=== PATIENT | female | born 1985 | race Caucasian/White ===

== ENCOUNTER → 2021-03-10 | Outpatient (CLI) | payer BC ==
--- NOTE | 2021-03-10 19:14 | CONS ---
CONSULTATION DATE OF SERVICE: 03/10/2021 35-year-old lady has [facility] for possible obstructive sleep apnea-hypopnea syndrome. HISTORY OF PRESENT ILLNESS/SLEEP WAKE EVALUATION: Patient's usual sleep schedule from 9 or 10 p.m. until 7:30 a.m. on weekend and until 8, 8:30 a.m. on weekends. No problems with falling asleep, although she has TV set in bedroom. She wakes up from sleep 2 times with nocturia. In the morning patient wakes up tired, has difficulties to pay attention, has problems with memory, concentration, irritability and anxiety. [place] Sleepiness Scale is 0, but this is with 15 mg of Adderall daily. PAST MEDICAL HISTORY: Positive for anxiety, panic attacks, ADHD. PAST SURGICAL HISTORY: Cholecystectomy. MEDICATIONS: control, propranolol 10 mg up to 3 times a day, Adderall 15 mg once a day. SOCIAL HISTORY: Negative for smoking or using alcohol. FAMILY HISTORY: Hypertension, hyperlipidemia, fibromyalgia, thyroid problems. PHYSICAL EXAMINATION: lady without distress. BP 118/63, HR around 100, RR 15, Height 5' 1-1/2", weight 191, body mass index in the range of 37. Neck 14-1/2" in circumference. Temperature 97.0, oxygen saturation at room air 97%. Oropharynx, low position of soft palate, Mallampati 3-4. HEENT: PERRLA, EOMI, evaluation of oropharynx showed tongue protrudes midline. NECK: Supple, no JVD. Thyroid is not palpable. LUNGS: Clear to percussion and to auscultation. Good air exchange. No wheezing or rhonchi. HEART: S1, S2 regular. No murmurs, gallops, or rubs. ABDOMEN: Slightly obese. Soft and nontender. Bowel sounds are present. No organomegaly appreciated. EXTREMITIES: No clubbing or cyanosis. [employer] OFFICER: Awake, alert, and oriented X3. Cranial nerves 2 to 7 intact. There is no fasciculation or atrophy. noted. No focal deficits observed. IMPRESSION: 1. Snoring, awakenings from sleep with nocturia, low position of soft palate, Mallampati 3-4, feeling tiredness and sleepiness during the day. [place] Sleepiness Scale is low, but the patient is on treatment with Adderall. Possible obstructive sleep apnea-hypopnea syndrome. 2. Obesity, body mass index about 37. 3. History of attention deficit hyperactivity disorder. Patient on treatment with Adderall. 4. History of anxiety and panic attacks. 5. Status post cholecystectomy. PLAN: 1. Home sleep apnea test to recheck the patient breathing during sleep. Previous home sleep apnea test was done by another institution and was negative several months ago. 2. Following plan after reviewing results of the home sleep apnea test, if the test will be negative for obstructive sleep apnea-hypopnea syndrome, we will consider to proceed with polysomnogram and following multiple sleep latency test without taking any Adderall to check, objectively, patient's symptoms of excessive daytime sleepiness. 3. Sleep hygiene with regular time in bed for 7 1/2 to 8 hours. 4. Precautions with driving, no driving, no sleepiness. 5. Losing weight program. 6. Preferable position during sleep on the side. Thank you very much for referring this patient for consultation. Sincerely, Joaquín Lima MD, PhD, FAASM Diplomat of [place] [employer] Sleep Medicine Board of [place] [employer] [facility] [place] MMODL / JIMENEZN: [id number] /
== END ==
LOC: SLEEP 15:15
PROVIDERS: ATTEND Internal Medicine
DX: R35.1 Nocturia (principal); R06.83 Snoring; E66.9 Obesity, unspecified; F90.9 Attention-deficit hyperactivity disorder, unspecified type; F41.0 Panic disorder [episodic paroxysmal anxiety]; Z90.49 Acquired absence of other specified parts of digestive tract; Z68.37 Body mass index [BMI] 37.0-37.9, adult; Z79.899 Other long term (current) drug therapy
CPT/HCPCS: 99211

== ENCOUNTER → 2021-04-21 | Outpatient (CLI) | payer BC ==
--- NOTE | 2021-04-25 09:28 | MM ---
Reason for exam: screening (asymptomatic). Last mammogram was performed 7 years and 10 months ago. History: Taking hormonal contraceptives for 7 months. Physical Findings: A clinical breast exam by your physician is recommended on an annual basis and results should be correlated with mammographic findings. MG Screening Mammo w CAD Bilateral CC and MLO view(s) were taken. Prior study comparison: June 11, 2013, CAD bilateral diagnostic mammogram. There are scattered fibroglandular densities. Breast density has considerably decreased from the prior 2013 exam. One focal asymmetry and two focal asymmetries remain in the upper outer quadrant of the right and left breasts, respectively. 6 month follow up recommended. ASSESSMENT: Probably benign, BI-RAD 3 RECOMMENDATION: Follow-up diagnostic mammogram of both breasts in 6 months.
== END | disposition home or self-care (01) ==
LOC: RADMAMWWP 10:00
PROVIDERS: ATTEND Obstetrics & Gynecology Obstetrics
DX: Z12.31 Encounter for screening mammogram for malignant neoplasm of breast (principal); Z79.3 Long term (current) use of hormonal contraceptives
CPT/HCPCS: 77067

== ENCOUNTER → 2021-12-02 | Outpatient (CLI) | payer BC ==
--- NOTE | 2021-12-02 14:42 | MM ---
Reason for exam: follow-up at short interval from prior study. Last mammogram was performed 7 months ago. History: Taking hormonal contraceptives beginning at age 15. Physical Findings: A clinical breast exam by your physician is recommended on an annual basis and results should be correlated with mammographic findings. MG 3D Diag Mammo W/Cad JOE Bilateral CC and MLO view(s) were taken. Prior study comparison: April 21, 2021, bilateral MG screening mammo w CAD. There are scattered fibroglandular densities. Finding: There is an increased size 15 mm high density, round mass located 12 cm from the nipple in the 10 o'clock upper outer quadrant of the right breast. Left breast nodular density is stable. New finding since April 21, 2021. Results were given to the patient verbally at the time of the exam. ASSESSMENT: Incomplete: need additional imaging evaluation, BI-RAD 0 RECOMMENDATION: Ultrasound of the right breast.
--- NOTE | 2021-12-02 14:46 | USB ---
Reason for exam: additional evaluation requested from abnormal screening. History: Taking hormonal contraceptives beginning at age 15. Physical Findings: A clinical breast exam by your physician is recommended on an annual basis and results should be correlated with mammographic findings. US Breast Limited BILAT Right limited breast ultrasound including focal area of concern, retroareolar and axilla demonstrates a 1.3 x 0.9 x 1.5cm hypoechoic, vascular lesion at 10 o'clock, 12cm from nipple. Left limited breast ultrasound including focal area of concern, retroareolar and axilla demonstrates a 0.7 x 0.3 x 0.6cm complex, cystic lesion at 2 o'clock, 12cm from nipple and a 0.7 x 0.3 x 0.7cm cystic lesion at 3 o'clock, 12cm from nipple, completely simple, probably benign, short term follow up recommended. Results were given to the patient verbally at the time of the exam. ASSESSMENT: Suspicious, BI-RAD 4 RECOMMENDATION: Ultrasound core biopsy of the right breast. Called office with mammographic findings and has scheduled an appointment for the patient for 12/23/21 at 9:[address] Foreman. Biopsy scheduled for 12/15/21 at 12:30. PRELIMINARY REPORT CALLED AND FAXED TO DR. FOREMAN ON 12/02/21. Follow-up diagnostic mammogram of the left breast in 6 months.
== END | disposition home or self-care (01) ==
LOC: RADMAMWWP 07:44
PROVIDERS: ATTEND Family Medicine
DX: R92.8 Other abnormal and inconclusive findings on diagnostic imaging of breast (principal); N64.89 Other specified disorders of breast
CPT/HCPCS: 77062; 77066

== ENCOUNTER → 2021-12-15 | Day surgery (SDC) | payer BC ==
--- NOTE | 2021-12-15 13:50 | USB ---
EXAMINATION TYPE: US biopsy breast VAD RT, MG diagnostic mammo RT wo CAD DATE OF EXAM: 12/15/2021 CLINICAL HISTORY: R92.8 ABN MAMMO. Abnormal ultrasound TECHNIQUE: Ultrasound guided core biopsy of right breast with clip placement and follow-up diagnostic right breast mammogram. COMPARISON: Prior bilateral breast ultrasound and mammogram December 02, 2021 FINDINGS: The procedure of ultrasound guided core biopsy was explained to the patient. Benefits, alternatives, and risks were discussed. An informed consent was then obtained. The patient was placed in supine positioning for imaging and for the procedure. Preprocedure ultrasound redemonstrates an oval circumscribed heterogeneous hypoechoic solid mass at 10:00 position in the deeper tissue measuring near 1.5 cm on long axis. The overlying skin was prepped and draped in usual sterile fashion. Lidocaine is used as anesthetic into the skin and subcutaneous tissue. Lidocaine with epinephrine is used as anesthetic into the deeper tissue up to area of concern in the right breast. Under ultrasound guidance, a vacuum assisted biopsy gun device was used to obtain 2 core samples. Following this, a biopsy clip was left in lesion. The patient tolerated the procedure well without any immediate complication. The patient was kept in the radiology department for short stay after the procedure and then discharged home in stable condition. Post procedure mammogram shows the clip satisfactory in position relative to the area of concern with some surrounding density or hematoma after procedure noted. IMPRESSION: Successful, uncomplicated ultrasound guided core biopsy of area of concern in the right breast, full pathology results to follow. Low to intermediate index of suspicion noted at time of procedure. Favor fibroadenoma. Pathology Results: Benign RIGHT BREAST, TEN O'CLOCK, ULTRASOUND GUIDED NEEDLE CORE BIOPSY: Fibroadenoma. Recommendation Follow up ultrasound of the right breast in 6 months. ADAM
== END ==
LOC: RADUSWWP 12:33
PROVIDERS: ATTEND Family Medicine
DX: D24.1 Benign neoplasm of right breast (principal)
CPT/HCPCS: 88305; 77065; 19083; A4648

== ENCOUNTER → 2023-08-17 | Outpatient (CLI) | payer BC ==
--- NOTE | 2023-08-17 09:33 | USB ---
Reason for Exam: Clinical finding. Patient History: Menarche at age 10. First Full-Term at age 24. Currently using Hormonal Contraceptives, starting at age 15. 12/15/2021, Benign Core Biopsy on the right side. Risk Values: Marix[place] 5 year model risk: 1.0%. NCI Lifetime model risk: 13.5%. Technique: Method: Whole Breast Handheld. Prior Study Comparison: 04/21/2021 Bilateral Screening Mammogram, [facility]. 12/02/2021 Bilateral Diagnostic Mammogram, [facility]. 12/15/2021 Right Diagnostic Mammogram, [facility]. Findings: The whole breast of the left breast, the axilla of the left breast and the retroareolar of the left breast were scanned. No solid or cystic masses are identified.. Overall Assessment: Negative, BI-RAD 1 Management: Screening Mammogram of both breasts in 1 year. A clinical breast exam by your physician is recommended on an annual basis and results should be correlated with mammographic findings. This exam should not preclude additional follow-up of suspicious palpable abnormalities. Results were given to the patient verbally at the time of exam. Electronically signed and approved by: Luis Angel Richey D.O. Radiologis
--- NOTE | 2023-08-17 09:33 | MM ---
Reason for Exam: Clinical finding. Last mammogram was performed 1 year(s) and 9 month(s) ago. Patient History: Menarche at age 10. First Full-Term at age 24. Currently using Hormonal Contraceptives, starting at age 15. 12/15/2021, Benign Core Biopsy on the right side. Risk Values: [place] 5 year model risk: 1.0%. NCI Lifetime model risk: 13.5%. Tissue Density: There are scattered fibroglandular densities. Findings: Analyzed By CAD. Pattern appears stable. Rounded densities in the outer upper bilateral breasts are evident. Biopsy clip is within the right upper outer nodular density. Findings appear stable. No suspicious groups of microcalcifications, spiculated or lobular masses, architectural distortion or other secondary signs of malignancy are mammographically apparent. Overall Assessment: Benign, BI-RAD 2 Management: Diagnostic Breast Ultrasound of both breasts. A negative mammogram report should not preclude additional follow up of suspicious palpable abnormalities. Patient should continue monthly self breast exam. A clinical breast exam by your physician is recommended on an annual basis and results should be correlated with mammographic findings. Electronically signed and approved by: Luis Angel Richey D.O. Radiologis
== END | disposition home or self-care (01) ==
LOC: RADMAMWWP 08:23
PROVIDERS: ATTEND Family Medicine
DX: R92.323 Mammographic fibroglandular density, bilateral breasts (principal)
CPT/HCPCS: 77062; 77066

== ENCOUNTER → 2023-08-20 | Outpatient (CLI) | payer BC ==
--- NOTE | 2023-08-21 11:28 | CA ---
Transthoracic Echo Report Name: Augusta Munroe Age: 38 Gender: F : 1985 Exam Date: 08/20/2023 16:53 Exam Location: Center Echo Ht (in): 64 Wt (lb): 197 Ordering Physician: Guido Foreman MD Attending/Referring Phys: Kallie Selby Offline Cutter Elizabeth Carroll RDCS Procedure CPT: Indications: R00.2 palpitations Cardiac Hx: Technical Quality: Fair Contrast 1: Total Dose (mL): Contrast 2: Total Dose (mL): MEASUREMENTS (Male / Female) Normal Values 2D ECHO LV Diastolic Diameter PLAX 3.7 cm 4.2 - 5.9 / 3.9 - 5.3 cm LV Systolic Diameter PLAX 2.6 cm IVS Diastolic Thickness 1.3 cm 0.6 - 1.0 / 0.6 - 0.9 cm LVPW Diastolic Thickness 1.3 cm 0.6 - 1.0 / 0.6 - 0.9 cm LV Relative Wall Thickness 0.7 RV Internal Dim ED PLAX 3.6 cm M-MODE Aortic Root Diameter MM 3.6 cm LA Systolic Diameter MM 1.7 cm LA Ao Ratio MM 0.5 AV Cusp Separation MM 3.2 cm DOPPLER AV Peak Velocity 108.5 cm/s AV Peak Gradient 4.7 mmHg AV Mean Velocity 69.6 cm/s AV Mean Gradient 2.2 mmHg AV Velocity Time Integral 16.4 cm LVOT Peak Velocity 100.2 cm/s LVOT Peak Gradient 4.0 mmHg LVOT Velocity Time Integral 16.3 cm Mitral E Point Velocity 67.9 cm/s Mitral A Point Velocity 81.1 cm/s Mitral E to A Ratio 0.8 MV Deceleration Time 125.7 ms MV E' Velocity 13.6 cm/s Mitral E to MV E' Ratio 5.0 TR Peak Velocity 201.7 cm/s TR Peak Gradient 16.3 mmHg Right Ventricular Systolic Press 26.3 mmHg FINDINGS Left Ventricle Mildly increased left ventricular wall thickness. Normal left ventricular systolic function with no obvious regional wall motion abnormalities. Left ventricular ejection fraction is estimated at 55-60 %. Right Ventricle Normal right ventricular size and function. Right ventricular systolic pressure within normal limits. Right Atrium Normal right atrial size. Left Atrium Normal left atrial size. Mitral Valve Structurally normal mitral valve. No mitral stenosis, regurgitation or prolapse. Aortic Valve Trileaflet aortic valve. No aortic valve stenosis or regurgitation. Tricuspid Valve Structurally normal tricuspid valve. Mild tricuspid regurgitation. Pulmonic Valve Structurally normal pulmonic valve. Pericardium No pericardial effusion. Aorta Normal size aortic root and proximal ascending aorta. CONCLUSIONS Normal LV function Previewed by: Dr. Aaron Porras MD (Electronically Signed) Final Date: 21 August 2023 11:27
== END | disposition home or self-care (01) ==
LOC: RADECHMAIN 16:44
PROVIDERS: ATTEND Family Medicine
DX: R00.2 Palpitations (principal)
CPT/HCPCS: 93306

== ENCOUNTER → 2023-11-19 | Outpatient (CLI) | payer BC ==
--- NOTE | 2023-11-29 06:08 | EM ---
EVENT MONITOR STUDY: A 7-day event monitor. INDICATIONS: Palpitations. FINDINGS: Underlying rhythm is sinus with episodes of sinus tachycardia, maximum heart rate was 138 beats per minute. CONCLUSION: In this 7-day event monitor the provided rhythm strips show sinus tachycardia. MMODL / IJN: [id number] /
--- NOTE | 2023-11-29 08:33 | EM ---
EVENT MONITOR STUDY: A 7-day event monitor. INDICATIONS: Palpitations. FINDINGS: Underlying rhythm is sinus with episodes of sinus tachycardia, maximum heart rate was 138 beats per minute. CONCLUSION: In this 7-day event monitor the provided rhythm strips showed sinus tachycardia. MMODL / IJN: [id number] /
== END | disposition home or self-care (01) ==
LOC: RADECHMAIN 07:34
PROVIDERS: ATTEND Family Medicine
DX: R00.0 Tachycardia, unspecified (principal); R00.2 Palpitations
CPT/HCPCS: 93270

== ENCOUNTER → 2024-05-28 | Outpatient (CLI) | payer BC ==
--- NOTE | 2024-05-28 17:33 | US ---
EXAMINATION TYPE: US thyroid st tissue head/neck DATE OF EXAM: 05/28/2024 COMPARISON: NONE CLINICAL INDICATION: Female, 38 years old with history of E06.9 THYROIDITIS; thyroiditis TECHNIQUE: Grayscale and color Doppler imaging of the thyroid gland. FINDINGS: GLAND SIZE: Right Lobe: 4.8x2.0x2.2 cm Overall Parenchyma: heterogeneous Left Lobe: 4.4x1.6x2.0 cm Overall Parenchyma: heterogeneous Isthmus Thickness: 0.2 cm NODULES RIGHT: # of nodules measured on right: 1 1. 1.1 X 0.8 x 0.8 cm, lower lateral, solid or almost completely solid, hypoechoic nodule, which is wider than tall, with ill-defined margins, without echogenic foci. TR 4. LEFT: # of nodules measured on left: 1 1. 1.5 X 0.5 x 0.6 cm, mid lateral, solid or almost completely solid, hypoechoic nodule, which is w ider than tall, with ill-defined margins, without echogenic foci. TR 4. ISTHMUS: # of nodules measured in the isthmus: 0 Bilateral neck scanned, no evidence of lymphadenopathy. IMPRESSION: Bilateral TR 4 thyroid nodules with the right measuring 1.1 cm and the left measuring 1.5 cm. ACR TI-RADS LEVEL: TR-RADS 4 - Moderately Suspicious: Follow if > 1 cm, FNA if > 1.5 cm *Highest TI-RADS level nodule reported [facility], , 05/28/2024 5:31 PM
== END | disposition home or self-care (01) ==
LOC: RADUSWWP 15:49
PROVIDERS: ATTEND Family Medicine
CPT/HCPCS: 76536

== ENCOUNTER 2024-07-29 08:51 | Day surgery (SDC) | payer BC ==
[2024-07-29] MEDS: ALPRAZolam 0.5 MG TAB PO STA (09:26)
--- NOTE | 2024-07-29 11:16 | US ---
EXAMINATION TYPE: US FNA thyroid first lesion DATE OF EXAM: 07/29/2024 10:30 AM COMPARISON: 05/28/2024 CLINICAL INDICATION:Female, 39 years old with history of E04.1 NONTOXIC SINGLE THYROID NODULE; , ATTENDING: Dr. Aman Olivo PROCEDURE: Informed consent was obtained. The risks and benefits of the procedure were discussed with the patien t. The site was marked. Timeout procedure was performed Ultrasound imaging demonstrates a left thyroid nodule The patient was prepped, draped in the usual sterile fashion, and locally anesthetized with 1% lidoca ine. Five fine needle aspiration were then performed with a 25 gauge needle. Samples were sent to [facility] pathology department for further analysis. Patient tolerated the procedure without incident and wa s sent home in stable condition. IMPRESSION: Successful ultrasound guided fine needle aspiration [facility], , 07/29/2024 11:13 AM
[2024-07-29 15:29] VITALS: TEMP 98
[2024-07-29 15:30] VITALS: RESP 18
[2024-07-29 15:31] VITALS: BP 122/79; PULSE 74
== END 2024-07-29 10:45 | disposition home or self-care (01) ==
LOC: RADPROMAIN 08:51
PROVIDERS: ATTEND Otolaryngology Plastic Surgery within the Head & Neck
DX: E04.1 Nontoxic single thyroid nodule (principal)
CPT/HCPCS: 10005; 88173; 88305